=== PATIENT | female | born 1995 | race Two or more races ===

== ENCOUNTER 2023-02-15 22:35 | Emergency (ER) | payer MEDICAID ==
[~2023-02-15] VITALS: Ht 157.5 cm; Wt 91.0 kg
[2023-02-15 22:37] VITALS: BP 141/58
[2023-02-16] MEDS ORDERED: HYDROCODONE/ACETAMINOPHEN 5-325 MG TABLET PO ONE (01:00)
[2023-02-16] MEDS ORDERED: BACITRACIN ZINC/POLYMYXIN B 14.2 GM OINTMENT TP ONE (01:00)
[2023-02-16] MEDS ORDERED: BACITRACIN 28 GM OINTMENT TP ONE (01:00)
[2023-02-16] MEDS ORDERED: PERTUSS(ACELL),DIPH,TET VAC/PF 0.5 ML SYRINGE IM. ONE (01:30)
[2023-02-16] MEDS ORDERED: CEPH-558 PO (01:58)
== END 2023-02-16 02:00 | disposition home or self-care (01) ==
LOC: EMS 22:35
DX: T24.102A Burn of first degree of unspecified site of left lower limb, except ankle and foot, initial encounter (principal); T31.0 Burns involving less than 10% of body surface
CPT/HCPCS: 16020; 90471; 90715; 99283

== ENCOUNTER 2023-02-20 20:52 | Emergency (ER) | payer MEDICAID ==
[~2023-02-20] VITALS: Ht 157.5 cm; Wt 91.0 kg
[~2023-02-20 20:52] MED LIST: CEPH-558 PO
[2023-02-20] MEDS ORDERED: SULFAMETHOX/TRIMETH DS 800-160 MG/TABLET PO ONE (22:30)
[2023-02-20 22:48] VITALS: BP 129/84
== END 2023-02-20 23:01 | disposition home or self-care (01) ==
LOC: EMS 20:58
DX: T24.202A Burn of second degree of unspecified site of left lower limb, except ankle and foot, initial encounter (principal); T31.0 Burns involving less than 10% of body surface
CPT/HCPCS: 99283